=== PATIENT | male | born 1950 | race Caucasian/White ===

== ENCOUNTER 2017-03-01 09:12 | Outpatient (CLI) | payer OTHER | END 2017-03-01 09:13 | disposition home or self-care (01) | DX: Z00.00 Encounter for general adult medical examination without abnormal findings (principal); Z12.5 Encounter for screening for malignant neoplasm of prostate ==

== ENCOUNTER 2017-03-07 10:29 | Outpatient (CLI) | payer OTHER | END 2017-03-07 10:30 | disposition home or self-care (01) | LOC: LAB.WCP 10:29 | PROVIDERS: ATTEND Family Medicine | DX: R74.8 Abnormal levels of other serum enzymes (principal) | CPT/HCPCS: 36415; 80074; 87341; 87522 ==

== ENCOUNTER 2017-03-13 17:15 | Outpatient (CLI) | payer OTHER ==
--- NOTE | 2017-03-13 20:47 | Ultrasound Report ---
EXAM: Bilateral Lower Extremity Arterial Doppler Ultrasound EXAM DATE: 03/13/2017 08:08 PM. CLINICAL HISTORY: Claudication. COMPARISON: None. TECHNIQUE: Real-time sonographic vascular imaging was performed by the dental hygiene administrative assistant, utilizing color-f low, Doppler flow, and spectral analysis. Multiple motor vehicle field representative static images were saved for review . FINDINGS: Right Leg: COMPUTER SYSTEM VALIDATION SPECIALIST: PSV 112 cm/sec. Monophasic waveform. PSFA: PSV 18 cm/sec. Monophasic waveform. MSFA: PSV 26 cm/sec. Monophasic waveform. DSFA: PSV 123 cm/sec. Monophasic waveform. PFA: PSV 57 cm/sec. Monophasic waveform. POP: PSV 16 cm/sec. Monophasic waveform. ABRAM: PSV 9 cm/sec. Monophasic waveform. RELIGIOUS ACTIVITIES DIRECTOR: PSV 12 cm/sec. Monophasic waveform. PER: PSV 10 cm/sec. Monophasic waveform. DPA: PSV 10 cm/sec. Monophasic waveform. Left Leg: COMPUTER SYSTEM VALIDATION SPECIALIST: PSV 162 cm/sec. Biphasic waveform. MSFA: PSV 14 cm/sec. Monophasic waveform. DSFA: PSV 60 cm/sec. Biphasic waveform. PFA: PSV 158 cm/sec. Biphasic waveform. POP: PSV 28 cm/sec. Monophasic waveform. ABRAM: PSV 17 cm/sec. Biphasic waveform. RELIGIOUS ACTIVITIES DIRECTOR: PSV 18 cm/sec. Biphasic waveform. PER: PSV 12 cm/sec. Monophasic waveform. DPA: PSV 25 cm/sec. Monophasic waveform. IMPRESSION: 1. Monophasic flow throughout the right lower extremity with occlusion in the mid to distal SFA, with collateral flow reconstituting the popliteal artery and three-vessel arterial flow to the ankle. 2. On the left, biphasic and monophasic flow throughout, with occlusion in the proximal to mid SFA, w ith collateral flow reconstituting the popliteal artery and three-vessel arterial flow to the ankle. [facility] Referring Provider Line: [phone] SITE ID: [id number]
== END 2017-03-13 19:30 ==
LOC: DI 17:15
PROVIDERS: ATTEND Family Medicine
DX: I77.1 Stricture of artery (principal)
CPT/HCPCS: 76705; 93880; 93925

== ENCOUNTER 2017-03-22 08:30 | Outpatient (CLI) | payer OTHER ==
--- NOTE | 2017-03-22 10:56 | Ultrasound Report ---
REVISED: THIS REPORT WAS ORIGINALLY SIGNED ON 03/22/2017 @ 1123. REPORT MOVED TO CORRECT ACCOUNT ON 03/29/2017. RIGHT UPPER QUADRANT ULTRASOUND: 03/22/2017 CLINICAL INDICATION: Elevated liver enzymes. TECHNIQUE: Real-time scanning was performed with plastic products sales representative static images obtained. FINDINGS: The liver measures 14.9 cm. Hepatic echotexture is normal. No intrahepatic biliary dilatation or focal parenchymal lesion is present. The common bile duct measures 4 mm. The gallbladder contains a single stone. No wall thickening or pericholecystic fluid is present. The right kidney measures 10.7 cm, and demonstrates no hydronephrosis. IMPRESSION: CHOLELITHIASIS, WITHOUT EVIDENCE OF ACUTE CHOLECYSTITIS OR BILIARY DILATATION. NORMAL APPEARANCE OF THE LIVER. JOB #: [id number] EXT JOB #: [id number] LANI
--- NOTE | 2017-03-22 11:43 | Ultrasound Report ---
REVISED: THIS REPORT WAS ORIGINALLY SIGNED ON 03/22/2017 @ 1237. REPORT MOVED TO CORRECT ACCOUNT ON 03/29/2017. CAROTID DUPLEX: 03/22/2017 CLINICAL INDICATION: Carotid bruit. TECHNIQUE: Real-time sonographic vascular imaging was performed by the meat team lead through the carotid arteries utilizing both color-flow and Doppler spectral analysis. Multiple service center representative static images were saved for review. Vessel PSV cm/sec 2D Plaque Estimate % ICA/CCA PSV EDV cm/sec % Stenosis RCCA Prox 82.9 -- RCCA Dist 75 26 RECA 79 -- RT BULB 138 -- 1.8 46 KATHLEEN Prox 255 -- 3.4 124 50.66 KATHLEEN Mid 181 -- 2.4 76 50-69 KATHLEEN Dist 116 -- 1.5 45 RVA 56 RVA flow direction: Antegrade. Vessel PSV cm/sec 2D Plaque Estimate % ICA/CCA PSV EDV cm/sec % Stenosis LCCA Prox 107 -- LCCA Dist 80 26 LECA 80 -- LFT BULB 80 -- 1.0 26 LICA Prox 132 -- 1.65 57 LICA Mid 141 -- 1.76 57 LICA Dist 123 -- 1.53 47 LVA 53 LVA flow direction: Antegrade. Velocity criteria are extrapolated from diameter data as defined by the Society of Radiologists in Ultrasound Consensus Conference Radiology 2003; 229; 340-346. Degree of Stenosis % ICA PSV cm/sec Plaque Estimate % ICA/CCA RSV Ratio ICA EDV cm/sec Normal < 125 None < 2.0 < 40 <50 < 125 < 50 < 2.0 < 40 50-69 125 - 130 >/= 50 2.0 - 4.0 40 - 100 >/= 70 but less than near occlusion > 230 >/= 50 > 4.0 > 100 Near occlusion High, low, or undetectable Visible lumen Variable Variable Total occlusion Undetectable No detectable lumen Not applicable Not applicable FINDINGS RIGHT: There is extensive calcified plaquing in the right carotid bifurcation, producing greater than 70% luminal diameter narrowing of the proximal right internal carotid artery. LEFT: There is extensive calcified plaquing in the left carotid bifurcation, without evidence of a focal hemodynamically significant carotid stenosis. The vertebral arteries demonstrate antegrade flow bilaterally. IMPRESSION: GREATER THAN 70% LUMINAL DIAMETER NARROWING OF THE RIGHT INTERNAL CAROTID ARTERY BY VELOCITY CRITERIA. MTDD
--- NOTE | 2017-03-29 06:27 | Ultrasound Report ---
EXAM: Bilateral Lower Extremity Arterial Doppler Ultrasound EXAM DATE: 03/13/2017 08:08 PM. CLINICAL HISTORY: Claudication. COMPARISON: None. TECHNIQUE: Real-time sonographic vascular imaging was performed by the wheat and oats flake miller, utilizing color-flow, Doppler flow, and spectral analysis. Multiple practice representative static images were saved for review. FINDINGS: Right Leg: IBM BPM ARCHITECT: PSV 112 cm/sec. Monophasic waveform. PSFA: PSV 18 cm/sec. Monophasic waveform. MSFA: PSV 26 cm/sec. Monophasic waveform. DSFA: PSV 123 cm/sec. Monophasic waveform. PFA: PSV 57 cm/sec. Monophasic waveform. POP: PSV 16 cm/sec. Monophasic waveform. ABRAM: PSV 9 cm/sec. Monophasic waveform. RIVETER: PSV 12 cm/sec. Monophasic waveform. PER: PSV 10 cm/sec. Monophasic waveform. DPA: PSV 10 cm/sec. Monophasic waveform. Left Leg: IBM BPM ARCHITECT: PSV 162 cm/sec. Biphasic waveform. MSFA: PSV 14 cm/sec. Monophasic waveform. DSFA: PSV 60 cm/sec. Biphasic waveform. PFA: PSV 158 cm/sec. Biphasic waveform. POP: PSV 28 cm/sec. Monophasic waveform. ABRAM: PSV 17 cm/sec. Biphasic waveform. RIVETER: PSV 18 cm/sec. Biphasic waveform. PER: PSV 12 cm/sec. Monophasic waveform. DPA: PSV 25 cm/sec. Monophasic waveform. IMPRESSION: 1. Monophasic flow throughout the right lower extremity with occlusion in the mid to distal SFA, with collateral flow reconstituting the popliteal artery and three-vessel arterial flow to the ankle. 2. On the left, biphasic and monophasic flow throughout, with occlusion in the proximal to mid SFA, with collateral flow reconstituting the popliteal artery and three-vessel arterial flow to the ankle. [facility] Referring Provider Line: [phone] SITE ID: [id number]
--- NOTE | 2017-03-29 06:30 | Ultrasound Report ---
RIGHT UPPER QUADRANT ULTRASOUND: 03/22/2017 CLINICAL INDICATION: Elevated liver enzymes. TECHNIQUE: Real-time scanning was performed with artist representative static images obtained. FINDINGS: The liver measures 14.9 cm. Hepatic echotexture is normal. No intrahepatic biliary dilat ation or focal parenchymal lesion is present. The common bile duct measures 4 mm. The gallbladder c ontains a single stone. No wall thickening or pericholecystic fluid is present. The right kidney me asures 10.7 cm, and demonstrates no hydronephrosis. IMPRESSION: CHOLELITHIASIS, WITHOUT EVIDENCE OF ACUTE CHOLECYSTITIS OR BILIARY DILATATION. NORMAL A PPEARANCE OF THE LIVER. JOB #: [id number] EXT JOB #:[id number]
== END 2017-03-22 23:59 ==
LOC: DI 08:30
PROVIDERS: ATTEND Family Medicine
DX: K80.20 Calculus of gallbladder without cholecystitis without obstruction (principal); I65.21 Occlusion and stenosis of right carotid artery
CPT/HCPCS: 76705; 93880

== ENCOUNTER 2017-04-09 11:28 | Outpatient (CLI) | payer OTHER ==
[2017-04-09 20:24] LABS: ALBUMIN/GLOBULIN RATIO 1.2 (1.0-2.2); BILIRUBIN,TOTAL 0.8 mg/dL (0.2-1.0); CALCIUM 9.6 mg/dL (8.5-10.3); CREATININE 0.9 mg/dL (0.6-1.2); POTASSIUM 4.3 mmol/L (3.5-5.0); TOTAL PROTEIN 7.4 g/dL (6.7-8.2)
== END 2017-04-09 11:29 | disposition home or self-care (01) ==
LOC: LAB.WCP 11:28
PROVIDERS: ATTEND Family Medicine
DX: R74.8 Abnormal levels of other serum enzymes (principal); B19.20 Unspecified viral hepatitis C without hepatic coma
CPT/HCPCS: 36415; 80053; 87902

== ENCOUNTER 2017-05-16 09:25 | Outpatient (CLI) | payer OTHER ==
[2017-05-16 13:44] LABS: PT - PROTHROMBIN TIME 11.3 secs (9.9-12.6)
[2017-05-16 13:57] LABS: BILIRUBIN,DIRECT 0.1 mg/dL (0.1-0.5); BILIRUBIN,TOTAL 0.7 mg/dL (0.2-1.0); TOTAL PROTEIN 7.2 g/dL (6.7-8.2)
== END 2017-05-16 09:26 ==
LOC: LAB.WCP 09:25
PROVIDERS: ATTEND Internal Medicine Gastroenterology
DX: B18.2 Chronic viral hepatitis C (principal)
CPT/HCPCS: 36415; 80076; 81599; 82728; 83540; 84466; 85610; 86038

== ENCOUNTER 2017-07-03 08:00 | Outpatient (CLI) | payer OTHER | END 2017-07-03 08:01 | disposition home or self-care (01) | LOC: LAB.WCP 08:00 | PROVIDERS: ATTEND Internal Medicine Gastroenterology | DX: B19.20 Unspecified viral hepatitis C without hepatic coma (principal) | CPT/HCPCS: 36415; 87522 ==

== ENCOUNTER 2017-07-17 07:49 | Day surgery (SDC) | payer OTHER ==
[2017-07-17] MEDS ORDERED: LACTATED RINGERS 1,000 ML IV ONE (08:23)
[2017-07-17] MEDS ORDERED: fentaNYL 100 MCG/2 ML VIAL IVP ONE (09:04)
[2017-07-17] MEDS ORDERED: MIDAZOLAM 2 MG/2 ML VIAL IVP ONE (09:04)
--- NOTE | 2017-07-17 09:47 | PROCEDURE REPORT ---
DATE OF PROCEDURE: 07/17/2017 00:00:00 PROCEDURE: Colonoscopy. ENDOSCOPIST: Radha Alaniz MD. PRIMARY CARE: Luis Eduardo Childress MD. INDICATION: Family history of colon polyps. First colonoscopy. PREMEDICATIONS: Fentanyl 150 mcg, Versed 6 mg IV titration. TOTAL SEDATION TIME: 20 minutes. After informed consent was obtained, the patient was placed in left lateral decubitus position. Video colonoscope was introduced in the rectum, slowly advanced to the ce cum. On slow withdrawal, mucosa was carefully examined. The scope was removed. The patient tolerated the procedure well. BLOOD LOSS: None. COMPLICATIONS: None. FINDINGS: Normal colonoscopy to cecum. The patient should have followup colonoscopy in 5 years due to family history of colon polyps. JOB #: [id number] EXT JOB #:[id number]
[2017-07-17 10:06] VITALS: BP 107/63
== END 2017-07-17 07:50 | disposition home or self-care (01) ==
LOC: SDS 07:49
PROVIDERS: ATTEND Internal Medicine Gastroenterology
PROC: 0DJD8ZZ Inspection of Lower Intestinal Tract, Via Natural or Artificial Opening Endoscopic (ICD-10-PCS; principal; 2017-07-17 09:00)
DX: Z12.11 Encounter for screening for malignant neoplasm of colon (principal); Z83.71 Family history of colonic polyps; B19.20 Unspecified viral hepatitis C without hepatic coma; E78.00 Pure hypercholesterolemia, unspecified; Z79.82 Long term (current) use of aspirin; F17.210 Nicotine dependence, cigarettes, uncomplicated
CPT/HCPCS: 45378; J7120

== ENCOUNTER 2017-09-18 14:43 | Outpatient (CLI) | payer OTHER | END 2017-09-18 14:44 | disposition home or self-care (01) | LOC: LAB.WCP 14:43 | PROVIDERS: ATTEND Internal Medicine Gastroenterology | DX: B19.20 Unspecified viral hepatitis C without hepatic coma (principal) | CPT/HCPCS: 36415; 87522 ==

== ENCOUNTER 2017-10-28 09:13 | Outpatient (CLI) | payer OTHER ==
[2017-10-28 12:51] LABS: ALBUMIN 4.3 g/dL (3.2-5.5); ALBUMIN/GLOBULIN RATIO 1.2 (1.0-2.2); BILIRUBIN,TOTAL 0.6 mg/dL (0.2-1.0); CALCIUM 9.7 mg/dL (8.5-10.3); CREATININE 0.9 mg/dL (0.6-1.2); TOTAL PROTEIN 7.9 g/dL (6.7-8.2)
[2017-10-28 13:36] LABS: BASOPHILS # (AUTO) 0.1 10^3/uL (0.0-0.1); BASOPHILS % (AUTO) 1.3 %; EOSINOPHILS # (AUTO) 0.1 10^3/uL (0.0-0.7); HGB - HEMOGLOBIN 16.2 g/dL (14.0-18.0); LYMPHOCYTES # (AUTO) 2.5 10^3/uL (1.5-3.5); LYMPHOCYTES % (AUTO) 22.9 %; MEAN CORPUSCULAR HEMOGLOBIN 32.4 pg (27.0-31.0); MEAN CORPUSCULAR HGB CONC 34.2 g/dL (32.0-36.0); MEAN CORPUSCULAR VOLUME 94.9 fL (80.0-94.0); MEAN PLATELET VOLUME 8.3 fL (7.4-11.4); MONOCYTES % (AUTO) 9.6 %; NEUTROPHILS % (AUTO) 65.2 %; PLT - PLATELET COUNT 210 10^3/uL (130-450); RED CELL DISTRIBUTION WIDTH 14.1 % (12.0-15.0); WHITE BLOOD COUNT 10.8 x10^3/uL (4.8-10.8)
== END 2017-10-28 09:14 | disposition home or self-care (01) ==
LOC: LAB.WCP 09:13
PROVIDERS: ATTEND Internal Medicine Gastroenterology
DX: B19.20 Unspecified viral hepatitis C without hepatic coma (principal)
CPT/HCPCS: 36415; 80053; 85025

== ENCOUNTER 2017-11-11 07:14 | Outpatient (CLI) | payer OTHER ==
[2017-11-11 12:40] LABS: BASOPHILS # (AUTO) 0.1 10^3/uL (0.0-0.1); EOSINOPHILS # (AUTO) 0.2 10^3/uL (0.0-0.7); HGB - HEMOGLOBIN 15.3 g/dL (14.0-18.0); LYMPHOCYTES # (AUTO) 1.7 10^3/uL (1.5-3.5); MONOCYTES # (AUTO) 0.8 10^3/uL (0.0-1.0); PLT - PLATELET COUNT 213 10^3/uL (130-450); RED CELL DISTRIBUTION WIDTH 13.5 % (12.0-15.0)
[2017-11-11 12:49] LABS: BASOPHILS % (AUTO) 1.2 %; EOSINOPHILS % (AUTO) 2.5 %; LYMPHOCYTES % (AUTO) 22.1 %; MEAN CORPUSCULAR HEMOGLOBIN 32.9 pg (27.0-31.0); MEAN CORPUSCULAR HGB CONC 35.8 g/dL (32.0-36.0); MEAN CORPUSCULAR VOLUME 91.8 fL (80.0-94.0); MONOCYTES % (AUTO) 10.2 %; NEUTROPHILS # (AUTO) 4.8 10^3/uL (1.5-6.6); RED BLOOD COUNT 4.64 10^6/uL (4.70-6.10); WHITE BLOOD COUNT 7.5 x10^3/uL (4.8-10.8)
[2017-11-11 12:58] LABS: ALBUMIN 3.7 g/dL (3.2-5.5); ALBUMIN/GLOBULIN RATIO 1.2 (1.0-2.2); BILIRUBIN,TOTAL 0.4 mg/dL (0.2-1.0); CALCIUM 9.2 mg/dL (8.5-10.3); CREATININE 0.8 mg/dL (0.6-1.2); TOTAL PROTEIN 6.8 g/dL (6.7-8.2)
[2017-11-13 18:56] LABS: HCV RNA QNT <1.18 DETECTED Log IU/mL (NOT DETECTED); HCV RNA QUANT RT PCR <15 DETECTED IU/mL (NOT DETECTED)
== END 2017-11-11 07:15 | disposition home or self-care (01) ==
LOC: LAB.WCP 07:14
PROVIDERS: ATTEND Internal Medicine Gastroenterology
DX: B19.20 Unspecified viral hepatitis C without hepatic coma (principal)
CPT/HCPCS: 36415; 80053; 85025; 87522

== ENCOUNTER 2017-12-09 07:04 | Outpatient (CLI) | payer OTHER ==
[2017-12-09 13:46] LABS: ALBUMIN 3.8 g/dL (3.2-5.5); ALBUMIN/GLOBULIN RATIO 1.1 (1.0-2.2); BILIRUBIN,TOTAL 0.4 mg/dL (0.2-1.0); CALCIUM 9.5 mg/dL (8.5-10.3); CREATININE 0.9 mg/dL (0.6-1.2); TOTAL PROTEIN 7.3 g/dL (6.7-8.2)
[2017-12-09 14:40] LABS: BASOPHILS % (AUTO) 0.5 %; EOSINOPHILS # (AUTO) 0.1 10^3/uL (0.0-0.7); EOSINOPHILS % (AUTO) 1.1 %; HGB - HEMOGLOBIN 15.8 g/dL (14.0-18.0); LYMPHOCYTES % (AUTO) 18.6 %; MEAN CORPUSCULAR HEMOGLOBIN 33.2 pg (27.0-31.0); MEAN CORPUSCULAR HGB CONC 34.2 g/dL (32.0-36.0); MEAN CORPUSCULAR VOLUME 97.1 fL (80.0-94.0); MEAN PLATELET VOLUME 8.6 fL (7.4-11.4); MONOCYTES # (AUTO) 0.9 10^3/uL (0.0-1.0); NEUTROPHILS # (AUTO) 7.5 10^3/uL (1.5-6.6); NEUTROPHILS % (AUTO) 70.8 %; PLT - PLATELET COUNT 189 10^3/uL (130-450); RED BLOOD COUNT 4.74 10^6/uL (4.70-6.10); RED CELL DISTRIBUTION WIDTH 13.6 % (12.0-15.0); WHITE BLOOD COUNT 10.6 x10^3/uL (4.8-10.8)
== END 2017-12-09 07:05 | disposition home or self-care (01) ==
LOC: LAB.WCP 07:04
PROVIDERS: ATTEND Internal Medicine Gastroenterology
DX: B19.20 Unspecified viral hepatitis C without hepatic coma (principal)
CPT/HCPCS: 36415; 80053; 85025

== ENCOUNTER 2018-01-08 08:00 | Outpatient (CLI) | payer OTHER ==
[2018-01-08 12:16] LABS: ALBUMIN 3.9 g/dL (3.2-5.5); ALBUMIN/GLOBULIN RATIO 1.2 (1.0-2.2); BILIRUBIN,TOTAL 0.8 mg/dL (0.2-1.0); CALCIUM 9.3 mg/dL (8.5-10.3); TOTAL PROTEIN 7.2 g/dL (6.7-8.2)
[2018-01-08 12:26] LABS: BASOPHILS % (AUTO) 0.6 %; EOSINOPHILS # (AUTO) 0.1 10^3/uL (0.0-0.7); EOSINOPHILS % (AUTO) 1.5 %; HGB - HEMOGLOBIN 15.9 g/dL (14.0-18.0); LYMPHOCYTES # (AUTO) 1.8 10^3/uL (1.5-3.5); LYMPHOCYTES % (AUTO) 22.6 %; MEAN CORPUSCULAR HEMOGLOBIN 32.6 pg (27.0-31.0); MEAN CORPUSCULAR HGB CONC 33.7 g/dL (32.0-36.0); MEAN CORPUSCULAR VOLUME 96.7 fL (80.0-94.0); MEAN PLATELET VOLUME 8.4 fL (7.4-11.4); MONOCYTES # (AUTO) 0.8 10^3/uL (0.0-1.0); MONOCYTES % (AUTO) 9.9 %; NEUTROPHILS # (AUTO) 5.3 10^3/uL (1.5-6.6); NEUTROPHILS % (AUTO) 65.4 %; PLT - PLATELET COUNT 202 10^3/uL (130-450); RED BLOOD COUNT 4.89 10^6/uL (4.70-6.10); RED CELL DISTRIBUTION WIDTH 13.6 % (12.0-15.0)
== END 2018-01-08 08:01 ==
LOC: LAB.WCP 08:00
PROVIDERS: ATTEND Internal Medicine Gastroenterology
DX: B19.20 Unspecified viral hepatitis C without hepatic coma (principal)
CPT/HCPCS: 36415; 80053; 85025; 87522

== ENCOUNTER 2018-04-10 08:00 | Outpatient (CLI) | payer OTHER ==
[2018-04-10 12:33] LABS: BASOPHILS % (AUTO) 0.5 %; EOSINOPHILS # (AUTO) 0.2 10^3/uL (0.0-0.7); EOSINOPHILS % (AUTO) 1.9 %; HGB - HEMOGLOBIN 15.3 g/dL (14.0-18.0); LYMPHOCYTES # (AUTO) 1.9 10^3/uL (1.5-3.5); LYMPHOCYTES % (AUTO) 22.7 %; MEAN CORPUSCULAR HGB CONC 33.8 g/dL (32.0-36.0); MEAN CORPUSCULAR VOLUME 97.6 fL (80.0-94.0); MEAN PLATELET VOLUME 8.6 fL (7.4-11.4); MONOCYTES # (AUTO) 0.8 10^3/uL (0.0-1.0); MONOCYTES % (AUTO) 9.3 %; NEUTROPHILS # (AUTO) 5.5 10^3/uL (1.5-6.6); NEUTROPHILS % (AUTO) 65.6 %; PLT - PLATELET COUNT 203 10^3/uL (130-450); RED BLOOD COUNT 4.65 10^6/uL (4.70-6.10); RED CELL DISTRIBUTION WIDTH 13.7 % (12.0-15.0); WHITE BLOOD COUNT 8.3 x10^3/uL (4.8-10.8)
[2018-04-10 12:48] LABS: ALBUMIN 3.6 g/dL (3.2-5.5); ALBUMIN/GLOBULIN RATIO 1.1 (1.0-2.2); BILIRUBIN,TOTAL 0.6 mg/dL (0.2-1.0); CALCIUM 9.4 mg/dL (8.5-10.3); CREATININE 0.9 mg/dL (0.6-1.2)
[2018-04-15 13:21] LABS: HCV RNA QNT <1.18 NOT DETECTED Log IU/mL (NOT DETECTED); HCV RNA QUANT RT PCR <15 NOT DETECTED IU/mL (NOT DETECTED)
== END 2018-04-10 08:01 | disposition home or self-care (01) ==
LOC: LAB.WCP 08:00
PROVIDERS: ATTEND Internal Medicine Gastroenterology
DX: B19.20 Unspecified viral hepatitis C without hepatic coma (principal)
CPT/HCPCS: 36415; 80053; 85025; 87522

== ENCOUNTER 2018-07-17 14:48 | Outpatient (CLI) | payer OTHER | END 2018-07-17 14:49 | disposition home or self-care (01) | LOC: DI 14:48 | PROVIDERS: ATTEND Nurse Practitioner | DX: Z53.9 Procedure and treatment not carried out, unspecified reason (principal) ==

== ENCOUNTER 2018-07-18 11:39 | Outpatient (CLI) | payer OTHER ==
[2018-07-18] MEDS ORDERED: IOPAMIDOL-300 50 ML VIAL ONE (12:11)
[2018-07-18] MEDS ORDERED: IOPAMIDOL-300 100 ML VIAL ONE (12:12)
--- NOTE | 2018-07-18 14:25 | CT Report ---
Reason: ABDOMINAL PAIN, HEPATITIS C, ELEVATED LIVER ENZ Procedure Date: 07/18/2018 Accession Number: [id number] / [id number] Procedure: CT - Abdomen/Pelvis W/ CPT Code: FULL RESULT: EXAM: CT ABDOMEN AND PELVIS EXAM DATE: 07/18/2018 01:42 PM. CLINICAL HISTORY: ABDOMINAL PAIN, HEPATITIS C, ELEVATED LIVER ENZ. COMPARISONS: None. TECHNIQUE: Routine helical CT imaging was performed through the abdomen and pelvis. IV contrast: 100 cc Isovue-300. Enteric contrast: Yes. Reconstructions: Coronal and sagittal. In accordance with CT protocol optimization, one or more of the following dose reduction techniques were utilized for this exam: automated exposure control, adjustment of mA and/or KV based on patient size, or use of iterative reconstructive technique. FINDINGS: Lung Bases: Unremarkable. Liver: Normal. No masses. Gallbladder/Bile Ducts: Unremarkable. Spleen: Normal. Pancreas: Normal. Adrenal Glands: Normal. Kidneys: Normal. No masses or hydronephrosis. Peritoneal Cavity/Bowel: . No free fluid, free air or adenopathy. No masses or acute inflammatory process. Pelvic Organs: Normal. The bladder and visualized pelvic organs are within normal limits. Vasculature: Marked atherosclerotic changes of the with noncalcified and calcified plaque in the abdominal aorta. Moderate narrowing origin of the celiac artery. Mild narrowing origin of SMA. Mild narrowing origin of right renal artery and left renal artery. Occlusion of the right common iliac artery. There is distal revascularization at the right common femoral artery and possibly distal right internal iliac branches . Marked narrowing of the left external iliac artery there may be short segment that is occluded. Bones: DJD spine Other: None. IMPRESSION: 1. Liver appears unremarkable. 2. Marked atherosclerotic changes. Chronic occlusion right common iliac artery with revascularization distally at the right common femoral artery. There is marked narrowing of the left external iliac artery with a short segment they may be occluded [facility]
[2018-07-18] MEDS ORDERED: IOPAMIDOL-300 100 ML VIAL IVP ONE (18:49)
[2018-07-21] MEDS ORDERED: IOPAMIDOL-300 50 ML VIAL PO ONE (13:24)
[2018-07-21] MEDS ORDERED: IOPAMIDOL-300 100 ML VIAL IVP ONE (13:24)
== END 2018-07-18 11:40 | disposition home or self-care (01) ==
LOC: DI 11:39
PROVIDERS: ATTEND Nurse Practitioner
DX: R10.9 Unspecified abdominal pain (principal); B19.20 Unspecified viral hepatitis C without hepatic coma; R74.8 Abnormal levels of other serum enzymes; I74.5 Embolism and thrombosis of iliac artery
CPT/HCPCS: 74177; Q9967

== ENCOUNTER 2018-07-30 16:39 | Outpatient (CLI) | payer OTHER ==
--- NOTE | 2018-07-31 02:03 | Ultrasound Report ---
Reason: ELEVATED LIVER ENZYMES Procedure Date: 07/30/2018 Accession Number: [id number] / [id number] Procedure: US - Abdomen Limited CPT Code: FULL RESULT: EXAM: ABDOMEN ULTRASOUND LIMITED, RUQ EXAM DATE: 07/30/2018 05:21 PM. CLINICAL HISTORY: Elevated liver enzymes. COMPARISON: Abdomen limited 03/22/2017 9:11 AM. TECHNIQUE: Real-time scanning was performed with static images obtained. FINDINGS: Liver: Liver parenchyma is heterogeneous and moderately hyperechoic. No discrete liver masses or intrahepatic bile duct dilation. However, evaluation for masses is limited secondary to the echogenicity. 16.3 cm. Main portal vein flow: Hepatopetal. Gallbladder: Gallstones. Contracted gallbladder demonstrating mild wall thickening. Negative sonographic Hastings's sign. No pericholecystic fluid. Biliary System: CBD measures 3 mm. No intrahepatic or extrahepatic ductal dilatation. Other: Right kidney measures 10.3 cm. No hydronephrosis process. IMPRESSION: 1. Gallstones. No sonographic findings concerning for acute cholecystitis. 2. Moderately fatty liver. No mass. 3. Normal common bile duct. [facility]
== END 2018-07-30 16:40 | disposition home or self-care (01) ==
LOC: DI 16:39
PROVIDERS: ATTEND Nurse Practitioner
DX: K80.20 Calculus of gallbladder without cholecystitis without obstruction (principal); K76.0 Fatty (change of) liver, not elsewhere classified
CPT/HCPCS: 76705

== ENCOUNTER 2018-09-14 10:38 | Emergency (ER) | payer OTHER ==
[2018-09-14] MEDS ORDERED: fentaNYL 100 MCG/2 ML VIAL IVP STA (11:15)
[2018-09-14] MEDS ORDERED: KETOROLAC 15 MG/ML VIAL IVP STA (11:15)
[2018-09-14] MEDS ORDERED: SODIUM CHLORIDE 0.9% 1,000 ML IV ONE (11:15)
[2018-09-14] MEDS ORDERED: IOPAMIDOL-300 100 ML VIAL ONE (11:29)
[2018-09-14 11:30] LABS: BASOPHILS # (AUTO) 0.1 10^3/uL (0.0-0.1); BASOPHILS % (AUTO) 0.8 %; EOSINOPHILS # (AUTO) 0.1 10^3/uL (0.0-0.7); EOSINOPHILS % (AUTO) 1.4 %; HGB - HEMOGLOBIN 16.8 g/dL (14.0-18.0); LYMPHOCYTES # (AUTO) 2.3 10^3/uL (1.5-3.5); LYMPHOCYTES % (AUTO) 22.5 %; MEAN CORPUSCULAR HEMOGLOBIN 32.6 pg (27.0-31.0); MEAN CORPUSCULAR HGB CONC 34.4 g/dL (32.0-36.0); MEAN PLATELET VOLUME 7.7 fL (7.4-11.4); MONOCYTES % (AUTO) 9.3 %; NEUTROPHILS # (AUTO) 6.8 10^3/uL (1.5-6.6); PLT - PLATELET COUNT 209 10^3/uL (130-450); RED BLOOD COUNT 5.15 10^6/uL (4.70-6.10); RED CELL DISTRIBUTION WIDTH 14.1 % (12.0-15.0); WHITE BLOOD COUNT 10.3 x10^3/uL (4.8-10.8)
[2018-09-14 11:40] LABS: ALBUMIN 4.5 g/dL (3.2-5.5); ALBUMIN/GLOBULIN RATIO 1.2 (1.0-2.2); BILIRUBIN,TOTAL 0.7 mg/dL (0.2-1.0); CALCIUM 9.8 mg/dL (8.5-10.3); TOTAL PROTEIN 8.2 g/dL (6.7-8.2)
[2018-09-14] MEDS ORDERED: IOPAMIDOL-300 100 ML VIAL IVP ONE (11:56)
--- NOTE | 2018-09-14 12:14 | CT Report ---
Reason: left flank pain Procedure Date: 09/14/2018 Accession Number: [id number] / [id number] Procedure: CT - Abdomen/Pelvis W/ CPT Code: FULL RESULT: EXAM: CT ABDOMEN AND PELVIS EXAM DATE: 09/14/2018 11:56 AM. CLINICAL HISTORY: LEFT flank pain. COMPARISONS: ABDOMEN/PELVIS W/ 07/18/2018 1:42 PM. TECHNIQUE: Routine helical CT imaging was performed through the abdomen and pelvis. IV contrast: 100 mL Isovue-300. Enteric contrast: No. Reconstructions: Coronal and sagittal. In accordance with CT protocol optimization, one or more of the following dose reduction techniques were utilized for this exam: automated exposure control, adjustment of mA and/or KV based on patient size, or use of iterative reconstructive technique. FINDINGS: Lung Bases: Mild emphysema is present. Liver: Normal. No masses. Gallbladder/Bile Ducts: Unremarkable. Spleen: Normal. Pancreas: Normal. Adrenal Glands: Normal. Kidneys: Normal. No masses or hydronephrosis. Peritoneal Cavity/Bowel: Normal. No free fluid, free air or adenopathy. No masses or acute inflammatory process. The appendix is not visualized, however, no inflammatory changes are seen in the right lower quadrant region. Pelvic Organs: Normal. The bladder and visualized pelvic organs are within normal limits. Vasculature: Extensive atherosclerotic disease of the aorta and iliac arteries is seen. The right iliac vasculature appears occluded with reconstitution in the common femoral artery region. The appearance is similar to prior CT. Bones: Diffuse degenerative changes are seen in the spine. No acute osseous abnormality is demonstrated. Other: None. IMPRESSION: 1. No acute intra-abdominal abnormality demonstrated including no nephrolithiasis or hydronephrosis. 2. 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 3. Emphysema. [facility]
[2018-09-14 12:34] LABS: BILIRUBIN,URINE NEGATIVE (NEGATIVE); GLUCOSE, URINE (UA) NEGATIVE (NEGATIVE); KETONES,URINE (UA) NEGATIVE (NEGATIVE); LEUKOCYTE ESTERASE, URINE NEGATIVE (NEGATIVE); NITRITE,URINE NEGATIVE (NEGATIVE); OCCULT BLOOD,URINE NEGATIVE (NEGATIVE); PROTEIN,URINE NEGATIVE (NEGATIVE); UROBILINOGEN,URINE 0.2 (NORMAL) E.U./dL (NORMAL)
[2018-09-14 12:38] LABS: CLARITY,URINE CLEAR (CLEAR)
--- NOTE | 2018-09-14 12:51 | ED Physician Documentation ---
History of Present Illness - Stated complaint Stated Complaint: BACK PX - Chief complaint Chief Complaint: Back Pain - Additonal information Additional information: 68-year-old male presents the emergency department with left-sided flank pain for the past several days. The patient denies any radiation of the pain. The patient denies hematuria, dysuria or fever. Symptoms have been intermittent. The patient denies any triggering factors. No relieving factors. No other associated symptoms. Review of Systems Constitutional: denies: Fever, Chills Eyes: denies: Discharge Ears: denies: Ear pain Nose: denies: Congestion Throat: denies: Sore throat Cardiac: denies: Chest pain / pressure Respiratory: denies: Dyspnea GI: denies: Abdominal Pain : denies: Dysuria Skin: denies: Rash Musculoskeletal: reports: Back pain Neurologic: denies: Generalized weakness Immunocompromised: denies: Chemotherapy PD PAST MEDICAL HISTORY - Past Medical History Cardiovascular: Coronary artery disease Other Past Medical History: gallstones - is scheduled to have gallbladder removed. - Past Surgical History Ortho: Other - Present Medications Home Medications: Ambulatory Orders Medication Instructions Recorded Confirmed Aspirin [Aspirin EC] 81 mg PO DAILY 07/16/17 07/17/17 Atorvastatin Calcium 40 mg PO DAILY 07/16/17 07/17/17 Aspirin 400 mg ORAL PRN 07/17/17 - Allergies Allergies/Adverse Reactions: Allergies Allergy/AdvReac Type Severity Reaction Status Date / Time No Known Drug Allergies Allergy Verified 07/16/17 14:02 - Social History Does the pt smoke?: Yes Smoking Status: Current every day smoker Does the pt drink ETOH?: No Does the pt have substance abuse?: No - Immunizations Immunizations are current?: Yes PD ED PE NORMAL - General General: Alert and oriented X 3, No acute distress - HEENT HEENT: Atraumatic, PERRL, EOMI - Neck Neck: Supple, no meningeal sign - Cardiac Cardiac: RRR - Respiratory Respiratory: No respiratory distress - Abdomen Abdomen: Soft, Non tender, Non distended - Back Back: No CVA TTP (The patient has tenderness in the left flank) - Derm Derm: Normal color - Extremities Extremities: No deformity - Neuro Neuro: Alert and oriented X 3, Normal speech - Psych Psych: Normal mood Results - Vitals Vitals: Vital Signs - 24 hr 09/14/18 11:03 Temperature 36.7 C Heart Rate 74 Respiratory 16 Rate Blood Pressure 149/88 H O2 Saturation 100 Oxygen O2 Source Room air - Labs Labs: Laboratory Tests 09/14/18 09/14/18 09/14/18 11:23 11:23 12:31 WBC 10.3 RBC 5.15 Hgb 16.8 Hct 48.9 MCV 95.0 H MCH 32.6 H MCHC 34.4 RDW 14.1 Plt Count 209 MPV 7.7 Neut # (Auto) 6.8 H Lymph # (Auto) 2.3 [place] # (Auto) 1.0 Eos # (Auto) 0.1 Baso # (Auto) 0.1 Absolute Nucleated RBC 0.00 Nucleated RBC % 0.0 Sodium 135 Potassium 4.4 Chloride 99 L Carbon Dioxide 29 Anion Gap 7.0 BUN 14 Creatinine 1.0 Estimated GFR (MDRD) 75 L Glucose 94 Calcium 9.8 Total Bilirubin 0.7 AST 19 ALT 19 Alkaline Phosphatase 70 Total Protein 8.2 Albumin 4.5 Globulin 3.7 Albumin/Globulin Ratio 1.2 Lipase 51 Urine Color YELLOW Urine Clarity CLEAR Urine pH 7.0 Ur Specific [place] <=1.005 Urine Protein NEGATIVE Urine Glucose (UA) NEGATIVE Urine Ketones NEGATIVE Urine Occult Blood NEGATIVE Urine Nitrite NEGATIVE Urine Bilirubin NEGATIVE Urine Urobilinogen 0.2 (NORMAL) Ur Leukocyte Esterase NEGATIVE Ur Microscopic Review NOT INDICATED Urine Culture Comments NOT INDICATED - Rads (name of study) CT abd/pelvis Radiology: Final report received (IMPRESSION: 1. No acute intra-abdominal abnormality demonstrated including no nephrolithiasis or hydronephrosis. 2. 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 3. Emphysema. ) PD MEDICAL DECISION MAKING - ED course ED course: The patient's workup does not reveal an acute etiology that would necessitate admission to the hospital or urgent transfer. On reevaluation the patient is resting comfortably and his symptoms appear to be under control. The patient is aware of the vascular disease. The patient appears appropriate for discharge and ongoing outpatient management. I discussed warning signs and recommended returning to the emergency department for any worsening or any concerns. Departure - Departure Disposition: 01 Home, Self Care Clinical Impression: Flank pain, acute Condition: Good Instructions: ED Flank Pain Uncertain Cause Follow-Up: Luis Eduardo Childress MD [Primary Care Provider] - Within 1 week Comments: Please return to the emergency department for worsening symptoms or any concerns
[2018-09-14 13:42] VITALS: BP 136/74
== END 2018-09-14 13:26 | disposition home or self-care (01) ==
LOC: ED 10:38
DX: R10.9 Unspecified abdominal pain (principal); F17.200 Nicotine dependence, unspecified, uncomplicated
CPT/HCPCS: 36415; 74177; 80053; 81003; 83690; 85025; 96374; 96375; 99283; Q9967; 81001; 87086

== ENCOUNTER 2018-09-15 08:00 | Outpatient (CLI) | payer OTHER ==
[2018-09-15 14:56] LABS: ALBUMIN/GLOBULIN RATIO 1.3 (1.0-2.2); BILIRUBIN,TOTAL 0.7 mg/dL (0.2-1.0); CALCIUM 9.2 mg/dL (8.5-10.3); CREATININE 1.1 mg/dL (0.6-1.2); TOTAL PROTEIN 7.1 g/dL (6.7-8.2)
[2018-09-15 15:22] LABS: BASOPHILS % (AUTO) 0.5 %; EOSINOPHILS # (AUTO) 0.1 10^3/uL (0.0-0.7); EOSINOPHILS % (AUTO) 0.9 %; HGB - HEMOGLOBIN 15.6 g/dL (14.0-18.0); LYMPHOCYTES # (AUTO) 1.9 10^3/uL (1.5-3.5); LYMPHOCYTES % (AUTO) 21.1 %; MEAN CORPUSCULAR HEMOGLOBIN 33.3 pg (27.0-31.0); MEAN CORPUSCULAR HGB CONC 34.7 g/dL (32.0-36.0); MEAN PLATELET VOLUME 8.7 fL (7.4-11.4); MONOCYTES # (AUTO) 0.8 10^3/uL (0.0-1.0); MONOCYTES % (AUTO) 8.4 %; NEUTROPHILS # (AUTO) 6.3 10^3/uL (1.5-6.6); NEUTROPHILS % (AUTO) 69.1 %; PLT - PLATELET COUNT 184 10^3/uL (130-450); RED BLOOD COUNT 4.69 10^6/uL (4.70-6.10); RED CELL DISTRIBUTION WIDTH 14.1 % (12.0-15.0); WHITE BLOOD COUNT 9.1 x10^3/uL (4.8-10.8)
== END 2018-09-15 08:01 | disposition home or self-care (01) ==
LOC: LAB.WCP 08:00
PROVIDERS: ATTEND Nurse Practitioner
DX: R74.8 Abnormal levels of other serum enzymes (principal); B19.20 Unspecified viral hepatitis C without hepatic coma; K80.20 Calculus of gallbladder without cholecystitis without obstruction; R10.9 Unspecified abdominal pain
CPT/HCPCS: 36415; 80053; 83690; 85025

== ENCOUNTER 2018-09-22 05:48 | Day surgery (SDC) | payer OTHER ==
[2018-09-22] MEDS ORDERED: ceFAZolin 2 GM/50 ML 2 GM/50 ML BAG IV ONE ×2 (06:26→08:26)
[2018-09-22] MEDS ORDERED: LACTATED RINGERS 1,000 ML IV ONE ×3 (06:55→08:22)
--- NOTE | 2018-09-22 06:55 | ANESTHESIA ---
Pre-Anesthesia VS, & Labs - Diagnosis symptomatic cholelithiasis - Procedure laparoscopic cholecystectomy Vital Signs: Temp Pulse Resp BP Pulse Ox 36.6 C 69 16 185/90 H 96 09/22/18 06:30 09/22/18 06:30 09/22/18 06:30 09/22/18 06:30 09/22/18 06:30 Height 5 ft 9 in Weight (kg) 66 kg Body Mass Index 21.7 - NPO >8 hours - Lab Results Lab results reviewed: Yes Home Medications and Allergies Home Medications: Ambulatory Orders Multivitamin/Iron/Folic Acid [Centrum Adults Tablet] 1 each PO 09/22/18 Aspirin [Aspirin EC] 81 mg PO DAILY 07/16/17 Atorvastatin Calcium 40 mg PO DAILY 07/16/17 Multivitamin/Iron/Folic Acid [Centrum Adults Tablet] 1 each PO 09/22/18 Allergies/Adverse Reactions: Allergies Allergy/AdvReac Type Severity Reaction Status Date / Time No Known Drug Allergies Allergy Verified 07/16/17 14:02 Anes History & Medical History - Anesthetic History Anesthesia Complications: reports: No previous complications Family history of Anesthesia Complications: Denies Family history of Malignant Hyperthermia: Denies - Medical History Cardiovascular: reports: High cholesterol Pulmonary: reports: Pneumonia, Other Gastrointestinal: reports: Cholelithiasis Urinary: reports: None Musculoskeletal: reports: Osteoarthritis, Chronic back pain Endocrine/Autoimmune: reports: None Skin: reports: None Smoking Status: Current every day smoker - Surgical History General: Colonoscopy, Other Orthopedic: Spine surgery Exam General: Alert, Oriented x3, Cooperative, No acute distress Dental: Loose/Frag, Poor dentition Mouth Openin Fingerbreadth Neck Mobility: Normal Mallampati classification: II Thyromental Distance: 4-6 cm Respiratory: Rhonchi Cardiovascular: Regular rate, Normal S1, Normal S2, No murmurs Mental/Cognitive Status: Alert/Oriented X3, Normal for patient Cognitive Status: Within normal limits Plan Anesthesia Type: General Consent for Procedure(s) Verified and Reviewed: Yes Code Status: Attempt Resuscitation ASA classification: 2-Mild systemic disease Is this case an emergency?: No
[2018-09-22] MEDS ORDERED: BUPIVACAINE 0.5%-EPI 1:200000 PF 30 ML VIAL ONE (07:06)
[2018-09-22] MEDS ORDERED: BUPIVACAINE 0.5%-EPI 1:200000 PF 10 ML VIAL SUBQ ONE (07:56)
[2018-09-22] MEDS ORDERED: ROPIVACAINE 0.5% PF 20 ML AMPULE EP ONE (08:26)
[2018-09-22] MEDS ORDERED: ePHEDrine 50 MG/ML VIAL IVP ONE (08:26)
[2018-09-22] MEDS ORDERED: ONDANSETRON 4 MG/2 ML VIAL IVP ONE (08:26)
[2018-09-22] MEDS ORDERED: KETOROLAC 30 MG/ML VIAL IVP ONE (08:26)
[2018-09-22] MEDS ORDERED: ACETAMINOPHEN 1,000 MG/100 ML 100 ML IV ONE (08:26)
[2018-09-22] MEDS ORDERED: PROPOFOL 200 MG/20 ML VIAL IVP ONE (08:26)
[2018-09-22] MEDS ORDERED: ROCURONIUM 50 MG/5 ML VIAL IVP ONE (08:26)
[2018-09-22] MEDS ORDERED: fentaNYL 100 MCG/2 ML VIAL IVP ONE (08:26)
[2018-09-22] MEDS ORDERED: ONDANSETRON 4 MG/2 ML VIAL IVP PRN (09:08)
[2018-09-22] MEDS ORDERED: oxyCODONE 5 MG TABLET PO PRN (09:08)
[2018-09-22] MEDS ORDERED: ACETAMINOPHEN 325 MG TABLET PO PRN (09:08)
[2018-09-22] MEDS ORDERED: IBUPROFEN 600 MG TABLET PO PRN (09:08)
[2018-09-22] MEDS ORDERED: LABETALOL 20 MG/4 ML SYRINGE IVP ONE (09:24)
[2018-09-22] MEDS ORDERED: oxyCODONE 5 MG TABLET ONE (10:18)
--- NOTE | 2018-09-22 10:25 | OPERATIVE REPORT ---
DATE OF SERVICE: 09/22/2018 Physician: Mesfin Hunt MD PREOPERATIVE DIAGNOSIS: Chronic calculous cholecystitis. POSTOPERATIVE DIAGNOSIS: Chronic cholecystitis. PROCEDURE PERFORMED: Laparoscopic cholecystectomy. ANESTHESIA: General endotracheal by José Miguel Cotton MD SURGEON: Mesfin Hunt MD ESTIMATED BLOOD LOSS: Minimal. COMPLICATIONS: None. DRAINS: None. FINDINGS: Laparoscopy revealed a moderately enlarged liver with capsular scarring. Gallbladder was seen to be chronically thickened and shrunken in size with mild to moderate pericholecystic adhesions. Cystic duct was of normal caliber. Common duct was not visualized. The visualized portion of the stomach, small and large intestine were otherwise within normal limits. INDICATIONS: The patient is a 68-year-old gentleman with recurrent episodes of epigastric abdominal pain. Evaluation included ultrasonography showing cholelithiasis, normal bile ducts. He is also suffering symptomatic cholelithiasis and advised to undergo laparoscopic cholecystectomy. TECHNIQUE: After informed consent, the patient was taken to the operating room and was placed under general endotracheal anesthesia. Preoperative preparation included the application of sequential calf compression boots, administration of 2 gram cefazolin intravenously within an hour of the incision. The abdomen was prepped with ChloraPrep solution and draped in the usual sterile fashion. A transverse incision made along the inferior umbilicus and carried down through the layers of abdominal wall until the peritoneum was identified, entered sharply. A 10 mm Shanta cannula was inserted and pneumoperitoneum was achieved with carbon dioxide. A 10 mm 30-degree [place] telescope was inserted. Laparoscopy carried out with findings as noted above. Three additional 5 mm ports were placed in the right upper quadrant. Pericholecystic adhesions were lysed with electrocautery. The gallbladder was grasped and retracted in a cephalad and lateral direction, exposing cystic triangle of Calot. This region was carefully dissected using hook electrocautery, isolating the cystic duct and artery adjacent to the gallbladder. The cystic artery was small and was ligated by electrocautery. The critical view of safety was obtained. The cystic duct was triply clipped distally and doubly proximally adjacent to the gallbladder and divided between. Gallbladder was resected from the liver bed using electrocautery for dissection and hemostasis. It was detached intact, placed in an organ retrieval bag, extracted and sent to Pathology. After hemostasis had been assured, the right upper quadrant was copiously irrigated with saline solution, following which instruments and cannulas were removed under direct vision. Pneumoperitoneum was allowed to escape and incisions were closed in layers using continuous 0 Vicryl, reapproximated in the midline fascia of the umbilicus, followed by 4-0 Monocryl subcuticular skin closure for all the port sites, followed by Dermabond. Anesthesia was terminated and the patient transferred to the recovery room in satisfactory condition. Sponge and needle counts correct x2. No drains were used. Prior to sending the gallbladder to Pathology, it was opened on a side table. No stones were evident. cc: Luis Eduardo Childress MD TD: 09/22/2018 09:25 LANI
[2018-09-22 10:42] VITALS: BP 160/81
== END 2018-09-22 05:49 | disposition home or self-care (01) ==
LOC: SDS 05:48
PROVIDERS: ATTEND Internal Medicine Gastroenterology
PROC: 0FT44ZZ Resection of Gallbladder, Percutaneous Endoscopic Approach (ICD-10-PCS; principal; 2018-09-22 07:30)
DX: K81.1 Chronic cholecystitis (principal); K82.8 Other specified diseases of gallbladder; F10.21 Alcohol dependence, in remission; F17.210 Nicotine dependence, cigarettes, uncomplicated; I10 Essential (primary) hypertension; Z86.19 Personal history of other infectious and parasitic diseases
CPT/HCPCS: 47562; A9270; J0131; J0690; J7120